=== PATIENT | female | born 1955 | race Caucasian/White ===

== ENCOUNTER 2017-04-04 12:26 | Inpatient (IN) | payer OTHER ==
[2017-04-04] MEDS ORDERED: ONDANSETRON 4 MG/2 ML VIAL ONE (12:31)
--- NOTE | 2017-04-04 12:35 | PDOC ---
History of Present Illness <Shayy Samano - Last Filed: 04/04/17 12:49> - General History Source: Patient Exam Limitations: No Limitations - History of Present Illness Initial Comments: 04/04/17 13:23 The patient is a 62 year old female BIBA with a significant PMHx of breast Ca, HTN, and depression who present to the ED with chief complaints of chest pain, lightheadedness, nausea, diaphoresis, and vomiting since this morning for about an hour. The patient reports having about 3 episodes of vomiting this morning, nonbilious/nonbloody. She reports in addition having an acute sudden onset of chest pain while sitting, localized at the center of her chest. She denies any fever or chills. She denies any SOB. She denies any recent travel. She denies any recent long trips. She reports releif of all symptoms with the pill that she was given by EMS. Allergies: NKA Social: Nonsmoker. Denies EtOH use Surgical. N/A <Donnell Hernandez - Last Filed: 04/04/17 13:23> <Ezio Pabon - Last Filed: 04/04/17 15:56> - General Chief Complaint: Chest Pain Stated Complaint: CHEST PAIN Time Seen by Provider: 04/04/17 12:35 Past History <Shayy Samano - Last Filed: 04/04/17 12:49> <Donnell Hernandez - Last Filed: 04/04/17 13:23> - Past Medical History Cancer: Yes (breast ca rt) HTN: Yes Psychiatric Problems: Yes (DEPRESSION) - Surgical History Appendectomy: Yes - Psycho/Social/Smoking Cessation Hx Anxiety: Yes Suicidal Ideation: No Smoking Status: No Smoking History: Never smoked Number of Cigarettes Smoked Daily: 0 Hx Substance Use Treatment: No <Ezio Pabon - Last Filed: 04/04/17 15:56> - Past Medical History Allergies/Adverse Reactions: Allergies Allergy/AdvReac Type Severity Reaction Status Date / Time No Known Allergies Allergy Verified 07/12/15 12:44 Home Medications: Ambulatory Orders Nebivolol HCl [Bystolic] 5 mg PO DAILY 09/19/12 Trazodone HCl 100 mg PO HS 07/12/15 Aspirin [ASA -] 81 mg PO DAILY 04/04/17 Lisinopril [Prinivil] 20 mg PO DAILY 04/04/17 Review of Systems - Review of Systems Able to Perform ROS?: Yes Comments:: 04/04/17 13:23 GENERAL/CONSTITUTIONAL: No fever or chills. No weakness. HEAD, EYES, EARS, NOSE AND THROAT: No change in vision. No ear pain or discharge. No sore throat. CARDIOVASCULAR: +chest pain and lightheadedness No shortness of breath. RESPIRATORY: No cough, wheezing, or hemoptysis. GASTROINTESTINAL: +nausea, vomiting, no diarrhea or constipation. GENITOURINARY: No dysuria, frequency, or change in urination. MUSCULOSKELETAL: No joint or muscle swelling or pain. No neck or back pain. SKIN: No rash NEUROLOGIC: No headache, vertigo, loss of consciousness, or change in strength/ sensation. ENDOCRINE: No increased thirst. No abnormal weight change. HEMATOLOGIC/LYMPHATIC: No anemia, easy bleeding, or history of blood clots. ALLERGIC/IMMUNOLOGIC: No hives or skin allergy. <Donnell Hernandez - Last Filed: 04/04/17 13:23> *Physical Exam - Vital Signs Last Vital Signs Temp Pulse Resp BP Pulse Ox 98.2 F 101 H 16 113/62 99 04/04/17 12:26 04/04/17 12:26 04/04/17 12:26 04/04/17 12:26 04/04/17 12:26 <Shayy Samano - Last Filed: 04/04/17 12:49> - Vital Signs Last Vital Signs Temp Pulse Resp BP Pulse Ox 98.2 F 101 H 16 113/62 99 04/04/17 12:26 04/04/17 12:26 04/04/17 12:26 04/04/17 12:04/04/17 12:35 - Physical Exam Comments: 04/04/17 13:23 GENERAL: Awake, alert, and fully oriented, in no acute distress HEAD: No signs of trauma EYES: PERRLA, EOMI, sclera anicteric, conjunctiva clear ENT: Auricles normal inspection, hearing grossly normal, nares patent, oropharynx clear without exudates. Moist mucosa NECK: Normal ROM, supple, no lymphadenopathy, JVD, or masses LUNGS: Breath sounds equal, clear to auscultation bilaterally. No wheezes, and no crackles HEART: Regular rate and rhythm, normal S1 and S2, no murmurs, rubs or gallops ABDOMEN: Soft, nontender, normoactive bowel sounds. No guarding, no rebound. No masses EXTREMITIES: Normal range of motion, no edema. No clubbing or cyanosis. No cords, erythema, or tenderness NEUROLOGICAL: Normal speech, cranial nerves intact, negative pronator drift, 5/ 5 strength in all 4 extremities, normal sensation to light touch in all 4 extremities, normal cerebellar exam, normal gait, normal reflexes and tone SKIN: Warm, Dry, normal turgor, no rashes or lesions noted. <Donnell Hernandez - Last Filed: 04/04/17 13:23> Heart Score/ECG Review - ECG Impressions Comment:: 04/04/17 12:49 Sinus tachycardia with normal sinus rhythm at [address] elevations T wave flattening T AVF and V4 <Shayy Samano - Last Filed: 04/04/17 12:49> - History History: Moderately suspicious - Electrocardiogram EKG: Non specific repolarization disturbance - Age Age: 45-65 - Risk Factors Risk Factors Heart Score: Yes Hx Hypertension, Yes Hx Obesity Based on the list above the patient has:: 1-2 risk factors - Troponin Troponin: </= normal limit - Score Heart Score - Total: 4 <Ezio Pabon - Last Filed: 04/04/17 15:56> ED Treatment Course - LABORATORY CBC & Chemistry Diagram: 04/04/17 13:20 04/04/17 13:20 <Ezio Pabon - Last Filed: 04/04/17 15:56> Medical Decision Making - Medical Decision Making 04/04/17 13:10 62-year-old female history of hypertension presents with sudden onset chest pain this morning while at rest associated with nausea, vomiting, lightheadedness, and diaphoresis. Symptoms resolved with the pill present to be nitroglycerin from EMS. EKG with sinus tachycardia and some T-wave flattening in multiple leads. Story concerning for acute coronary syndrome. PE is also on the differential but less likely this patient has no risk factors - she is however slightly tachycardic to low 100s. Pneumonia on differential as well but unlikely in the absence of fevers, coughing, chills. -labs -CXR -find ACR -consider D-dimer -admit 04/04/17 13:30 Per EMS, patient received one sublingual nitroglycerin, 324 mg of aspirin, and Zofran with relief of symptoms. 04/04/17 15:47 Labs unremarkable with the exception of the leukocytosis to 22. Chest x-ray negative. UA is pending. Spoke with Dr. Caro, the patient's primary care doctor. Will admit patient for ACS rule out. Also spoke with Dr. Berkowitz who is covering for the patient's customer operations manager Dr. Miller and discussed the case with him <Ezio Pabon - Last Filed: 04/04/17 15:56> *DC/Admit/Observation/Transfer <Shayy Samano - Last Filed: 04/04/17 12:49> - Attestations Scribe Attestion: 04/04/17 13:23 Documentation prepared by Donnell Hernandez, acting as medical staff services manager for Ezio Pabon MD. <Donnell Hernandez - Last Filed: 04/04/17 13:23> - Discharge Dispostion Admit: Yes - Attestations Physician Attestion: 04/04/17 15:56 I, Dr. Ezio Pabon MD, attest that this document has been prepared under my direction and personally reviewed by me in its entirety. I further attest, that it accurately reflects all work, treatment, procedures and medical decision -making performed by me. <Ezio Pabon - Last Filed: 04/04/17 15:56> Diagnosis at time of Disposition: Chest pain Qualifiers: Chest pain type: other chest pain Qualified Code(s): R07.89 - Other chest pain ; R07.8 - Other chest pain - Discharge Dispostion Condition at time of disposition: Stable - Referrals Referrals: Geovany Benson MD [Primary Care Provider] -
[2017-04-04 13:27] LABS: MCH 30.1 pg (25.7-33.7); MCHC 32.9 g/dl (32.0-36.0); MEAN CELL VOLUME 91.6 fl (80-96); MEAN PLT VOLUME 7.6 fl (7.5-11.1); PLATELET COUNT 285 K/MM3 (134-434); RDW 14.1 % (11.6-15.6); WHITE BLOOD COUNT 22.8 K/mm3 (4.0-10.0)
[2017-04-04 13:52] LABS: ANION GAP 10 (8-16); BILIRUBIN,TOTAL 0.4 mg/dL (0.2-1.0); CO2 27 mmol/L (21-32); CREATININE 0.8 mg/dL (0.55-1.02); GLUCOSE,RANDOM 123 mg/dL (74-106); SGPT/ALT 23 U/L (12-78)
[2017-04-04 13:55] LABS: ALK PHOS 71 U/L (45-117); MAGNESIUM 2.2 mg/dL (1.8-2.4); TOT PROT 7.6 g/dl (6.4-8.2); TROPONIN I < 0.02 ng/ml (0.00-0.05)
[2017-04-04 13:56] LABS: SGOT/AST 24 U/L (15-37)
--- NOTE | 2017-04-04 14:01 | EKG ---
Test Reason : Blood Pressure : / mmHG Vent. Rate : 101 BPM Atrial Rate : 101 BPM P-R Int : 148 ms QRS Dur : 076 ms QT Int : 348 ms P-R-T Axes : 035 008 021 degrees QTc Int : 451 ms SINUS TACHYCARDIA NONSPECIFIC T WAVE ABNORMALITY ABNORMAL ECG WHEN COMPARED WITH ECG OF 12-JUL-2015 13:38, NONSPECIFIC T WAVE ABNORMALITY NOW EVIDENT IN ANTERIOR LEADS Confirmed by HAROON PACE MD ([id number]) on 04/04/2017 2:01:02 PM Referred By: Confirmed By:HAROON PACE MD
[2017-04-04] MEDS ORDERED: HEMOQUE CONTROL SOLUTION ONE (14:07)
[2017-04-04 16:01] LABS: URINE APPEARANCE CLOUDY; URINE BILIRUBIN NEGATIVE (NEGATIVE); URINE BLOOD 1+ (NEGATIVE); URINE COLOR DKYELLOW; URINE GLUCOSE (UA) NEGATIVE (NEGATIVE); URINE KETONE TRACE (NEGATIVE); URINE LEUK ESTERASE NEGATIVE (NEGATIVE); URINE NITRITE NEGATIVE (NEGATIVE); URINE UROBILINOGEN NEGATIVE mg/dL (0.2-1.0)
[2017-04-04 16:32] LABS: URINE PROTEIN 1+ (NEGATIVE)
[2017-04-04 17:04] LABS: URINE BACTERIA MANY /hpf (NONE SEEN); URINE MUCUS MANY; URINE RBC 25 /hpf (0-3); URINE WBC 1 /hpf (3-5); YEAST MODERATE
[2017-04-04 18:51] VITALS: BMI 26.6
[2017-04-04] MEDS ORDERED: ACETAMINOPHEN 325 MG TABLET (FP) PO PRN (21:33)
--- NOTE | 2017-04-04 21:37 | HP ---
Admitting History and Physical - Primary Care Physician PCP: Yosef Foy - Admission Chief Complaint: CHEST PAIN ACUTE CORONARY SYNDROME History of Present Illness: SENT FROM DR OROZCO OFFICE WITH CHEST PAIN RIGHT SIDED RADIATING TO STERNUM 10/ 10 INTENSITY, BURNING WITH NAUSEA AND VOMITING History Source: Patient, Significant Other - Past Medical History Cardiovascular: Yes: HTN - Smoking History Smoking history: Never smoked Aproximately how many cigarettes per day: 0 - Alcohol/Substance Use Hx Alcohol Use: No Home Medications - Allergies Allergies/Adverse Reactions: Allergies Allergy/AdvReac Type Severity Reaction Status Date / Time No Known Allergies Allergy Verified 07/12/15 12:44 - Home Medications Home Medications: Ambulatory Orders Nebivolol HCl [Bystolic] 5 mg PO DAILY 09/19/12 Trazodone HCl 100 mg PO HS 07/12/15 Aspirin [ASA -] 81 mg PO DAILY 04/04/17 Lisinopril [Prinivil] 20 mg PO DAILY 04/04/17 Review of Systems - Review of Systems Constitutional: reports: Weakness Eyes: reports: No Symptoms HENT: reports: No Symptoms Neck: reports: No Symptoms, Stiffness Cardiovascular: reports: No Symptoms, Chest Pain, Shortness of Breath Respiratory: reports: SOB Gastrointestinal: reports: Abdominal Pain, Nausea, Vomiting Genitourinary: reports: No Symptoms Breasts: reports: No Symptoms Reported Musculoskeletal: reports: No Symptoms Integumentary: reports: No Symptoms Neurological: reports: No Symptoms Endocrine: reports: No Symptoms Hematology/Lymphatic: reports: No Symptoms Psychiatric: reports: No Symptoms Physical Examination Vital Signs: Vital Signs Temperature 98.2 F 04/04/17 12:26 Pulse Rate 85 04/04/17 18:44 Respiratory Rate 12 04/04/17 18:44 Blood Pressure 115/73 04/04/17 18:44 O2 Sat by Pulse Oximetry (%) 99 04/04/17 18:44 Constitutional: Yes: Mild Distress Eyes: Yes: WNL HENT: Yes: WNL Neck: Yes: WNL Cardiovascular: Yes: WNL Respiratory: Yes: WNL Gastrointestinal: Yes: WNL ...Rectal Exam: Yes: WNL Renal/: Yes: WNL Breast(s): Yes: WNL Musculoskeletal: Yes: WNL Extremities: Yes: WNL Edema: No Peripheral Pulses WNL: Yes Integumentary: Yes: WNL Neurological: Yes: WNL ...Motor Strength: WNL Psychiatric: Yes: WNL Problem List - Problems (1) Chest pain Code(s): R07.9 - CHEST PAIN, UNSPECIFIED Qualifiers: Chest pain type: other chest pain Qualified Code(s): R07.89 - Other chest pain; R07.8 - Other chest pain (2) Breast cancer Code(s): C50.919 - MALIGNANT NEOPLASM OF UNSP SITE OF UNSPECIFIED FEMALE BREAST Qualifiers: Breast location: unspecified site of breast (3) HTN (hypertension) Code(s): I10 - ESSENTIAL (PRIMARY) HYPERTENSION Qualifiers: Hypertension type: essential hypertension Qualified Code(s): I10 - Essential (primary) hypertension Assessment/Plan H/O BREAST CANCER RIGHT SIDED SAME SIDE OF PAIN R/O ACUTE CARDIAC SYNDROME CARDIO CONSULT CARDIAC ENZYMES CHECK LABS MONITOR LEVELS TELEMETRY
[2017-04-04] MEDS ORDERED: ATORVASTATIN CA 10 MG TABLET (FP) PO SCH (22:00)
[2017-04-04] MEDS ORDERED: traZODone HCL 50 MG TABLET (FP) PO SCH (22:00)
[2017-04-04] MEDS: HEPARIN NA (PORCINE) 5,000 UNITS/ML 1ML VIAL SQ SCH (22:37)
[2017-04-05 07:10] LABS: MCH 30.2 pg (25.7-33.7); MCHC 33.1 g/dl (32.0-36.0); MEAN CELL VOLUME 91.1 fl (80-96); MEAN PLT VOLUME 8.4 fl (7.5-11.1); PLATELET COUNT 254 K/MM3 (134-434); RDW 14.1 % (11.6-15.6); WHITE BLOOD COUNT 9.8 K/mm3 (4.0-10.0)
[2017-04-05 07:35] LABS: ALBUMIN 3.5 g/dl (3.4-5.0); ANION GAP 6 (8-16); CALCIUM 8.3 mg/dL (8.5-10.1); CO2 28 mmol/L (21-32)
[2017-04-05 07:39] LABS: ALK PHOS 57 U/L (45-117); BILIRUBIN,TOTAL 0.5 mg/dL (0.2-1.0); CHOLESTEROL 172 mg/dL (50-200); CPK 99 IU/L (26-192); CREATININE 0.7 mg/dL (0.55-1.02); GLUCOSE,RANDOM 95 mg/dL (74-106); LDL CHOLESTEROL (ONLY SJRH) 108 mg/dL (5-100); SGOT/AST 13 U/L (15-37); SGPT/ALT 19 U/L (12-78); TOT PROT 6.6 g/dl (6.4-8.2); TROPONIN I < 0.02 ng/ml (0.00-0.05)
[2017-04-05] MEDS: HEPARIN NA (PORCINE) 5,000 UNITS/ML 1ML VIAL SQ SCH (09:00)
[2017-04-05] MEDS ORDERED: LISINOPRIL 20 MG TABLET (FP) PO SCH (10:00)
[2017-04-05] MEDS ORDERED: NEBIVOLOL 10 MG TABLET (FP) PO SCH (10:00)
[2017-04-05] MEDS ORDERED: ASPIRIN COATED 81 MG TABLET.EC PO SCH (10:00)
--- NOTE | 2017-04-05 10:13 | DS ---
Physical Examination Vital Signs: Vital Signs Temperature 97.8 F 04/05/17 06:08 Pulse Rate 88 04/05/17 06:08 Respiratory Rate 16 04/05/17 06:08 Blood Pressure 133/68 04/05/17 06:08 O2 Sat by Pulse Oximetry (%) 99 04/04/17 21:00 Constitutional: Yes: No Distress Eyes: Yes: WNL HENT: Yes: WNL Neck: Yes: WNL Cardiovascular: Yes: WNL Respiratory: Yes: WNL Gastrointestinal: Yes: WNL Renal/: Yes: WNL Musculoskeletal: Yes: WNL Extremities: Yes: WNL Edema: No Peripheral Pulses WNL: Yes Integumentary: Yes: WNL Wound/Incision: Yes: Clean/Dry Neurological: Yes: WNL ...Motor Strength: WNL Psychiatric: Yes: WNL Labs: CBC, BMP 04/05/17 06:30 04/05/17 06:30 Discharge Summary Reason For Visit: CHEST PAIN Current Active Problems Chest pain (Acute) Procedures: Principal: labs Other Procedures: cx Hospital Course: admitted for chest pain observation, r/o mi, stress test normal per cardiology, tn home f/u outpatient, wbc elevated on admission, blood and urine cx pending will f/u as outpatient with dr benson Condition: Stable - Instructions Diet, Activity, Other Instructions: return to ed if chest pain or fevers arise low sodium f/u blood and urine cultures with your pmd dr benson in 3 days Referrals: Geovany Benson MD [Primary Care Provider] - Disposition: HOME - Home Medications Comprehensive Discharge Medication List: Ambulatory Orders Nebivolol HCl [Bystolic] 5 mg PO DAILY 09/19/12 Trazodone HCl 100 mg PO HS 07/12/15 Aspirin [ASA -] 81 mg PO DAILY 04/04/17 Lisinopril [Prinivil] 20 mg PO DAILY 04/04/17 Acetaminophen [Tylenol .Regular Strength -] 650 mg PO Q6H PRN #0 tablet Aspirin Coated [Ecotrin -] 81 mg PO DAILY #30 tab 04/05/17 Atorvastatin Ca [Lipitor] 10 mg PO HS tablet 04/05/17 Lisinopril [Prinivil] 20 mg PO DAILY tablet 04/05/17 Nebivolol [Bystolic -] 10 mg PO DAILY tab 04/05/17 Trazodone HCl [Desyrel -] 50 mg PO HS tablet 04/05/17
[2017-04-05 12:08] VITALS: BP 119/70; PULSE 76; TEMP 98
== END 2017-04-05 12:17 | disposition home or self-care (01) | DRG 203 ==
LOC: JER 12:26 → JERBED 15:56 → J4S 20:10
PROVIDERS: ADMIT Family Medicine; ATTEND Family Medicine
DX: R07.9 Chest pain, unspecified (principal); I10 Essential (primary) hypertension; Z85.3 Personal history of malignant neoplasm of breast; F32.9 Major depressive disorder, single episode, unspecified; E66.9 Obesity, unspecified; Z68.27 Body mass index [BMI] 27.0-27.9, adult
CPT/HCPCS: 36415; 71020-TC; 80053; 80061; 81003; 81015; 83036; 83721; 83735; 83880; 84484; 85025; 85027; 86850; 86900; 86901; 87040; 87086; 93005; 93010; 99285-25; J1644

== ENCOUNTER 2022-01-09 04:48 | Day surgery (SDC) | payer OTHER ==
[2022-01-06 14:27] VITALS: BMI 26.6
[2022-01-09 13:11] VITALS: BP 115/71; PULSE 64; TEMP 98
== END 2022-01-09 13:00 | disposition home or self-care (01) ==
LOC: JASU-ENDO 04:48
PROVIDERS: ATTEND Internal Medicine Gastroenterology
PROC: 0DB68ZX Excision of Stomach, Via Natural or Artificial Opening Endoscopic, Diagnostic (ICD-10-PCS; 2022-01-09)
PROC: 0DB48ZX Excision of Esophagogastric Junction, Via Natural or Artificial Opening Endoscopic, Diagnostic (ICD-10-PCS; principal; 2022-01-09 11:30)
DX: K21.00 Gastro-esophageal reflux disease with esophagitis, without bleeding (principal); K29.50 Unspecified chronic gastritis without bleeding
CPT/HCPCS: 88305-TC; 88342-TC